=== PATIENT | female | born 1970 | race African-American/Black ===

== ENCOUNTER 2023-01-17 03:34 | Emergency (ER) | payer MEDICAID, OTHER ==
[~2023-01-17] VITALS: Ht 165.1 cm; Wt 68.0 kg
[2023-01-17 04:25] LABS: Basophils # (auto) 0.1 10 ^3/uL (0-0.2); Basophils % (auto) 1.6 % (0.0-2.0); Eosinophils # (auto) 0.1 10 ^3/uL (0-0.8); Eosinophils % (auto) 2.4 % (0.0-7.0); Hematocrit 42.1 % (36.0-46.0); Hemoglobin 13.7 g/dL (12.2-16.2); Mean Corpuscular Hemoglobin 27.2 pg (28.0-32.0); Mean Corpuscular Hgb Conc. 32.6 g/dL (32.0-36.0); Mean Corpuscular Volume 83.4 fL (80.0-100.0); Monocytes # (auto) 0.3 10 ^3/uL (0-1.3); Monocytes % (auto) 5.5 % (0.0-12.0); Neutrophils # (auto) 4.2 10 ^3/uL (1.6-8.6); Neutrophils % (auto) 73.5 % (37.0-80.0); Nucleated Red Blood Cells % 0.2 %; Red Blood Cells 5.05 10^6/uL (4.0-5.20); Red Cell Distribution Width 13.6 % (11.8-14.3); White Blood Cell 5.7 10^3/uL (4.4-10.8)
[2023-01-17 04:46] LABS: Albumin 3.9 g/dL (3.4-5.0); Calcium 8.6 mg/dL (8.5-10.1); Potassium 3.1 mmol/L (3.5-5.1)
[2023-01-17 04:49] LABS: BUN/Creatinine Ratio 22.1 (10.0-20.0); Bilirubin, Total 0.5 mg/dL (0.2-1.0); Total Protein 7.3 g/dL (6.4-8.2)
[2023-01-17] MEDS ORDERED: ZOFR4T PO (05:27)
[2023-01-17] MEDS ORDERED: CIPR-173 PO (05:27)
[2023-01-17] MEDS ORDERED: PERCOT PO (05:27)
[2023-01-17] MEDS ORDERED: OXYCODONE W/ ACETAMINOPHEN 5/325MG TABLET PO ONE (05:30)
[2023-01-17] MEDS ORDERED: CIPROFLOXACIN HCL 500 MG TAB PO ONE (05:30)
[2023-01-17] MEDS ORDERED: ONDANSETRON ODT 4 MG TAB PO ONE (05:30)
[2023-01-17 05:53] VITALS: BP 131/86
== END 2023-01-17 06:53 | disposition home or self-care (01) ==
LOC: ER 03:34
DX: N20.0 Calculus of kidney (principal); K29.70 Gastritis, unspecified, without bleeding; Z90.49 Acquired absence of other specified parts of digestive tract; Z88.2 Allergy status to sulfonamides; Z88.8 Allergy status to other drugs, medicaments and biological substances
CPT/HCPCS: 36415; 74176; 80053; 85025; 93005; 99284; Q0162

== ENCOUNTER 2023-01-17 11:53 | Emergency (ER) | payer MEDICAID ==
[~2023-01-17] VITALS: Ht 167.6 cm; Wt 68.0 kg
[~2023-01-17 11:53] MED LIST: CIPR-173 PO; PERCOT PO; ZOFR4T PO
[2023-01-17 14:01] VITALS: BP 131/93
[2023-01-17] MEDS ORDERED: OXYCODONE W/ ACETAMINOPHEN 5/325MG TABLET PO ONE (14:15)
== END 2023-01-17 14:36 | disposition home or self-care (01) ==
LOC: ER 11:53
DX: N23 Unspecified renal colic (principal); R51.9 Headache, unspecified; Z90.89 Acquired absence of other organs; Z98.51 Tubal ligation status; Z88.8 Allergy status to other drugs, medicaments and biological substances; Z88.2 Allergy status to sulfonamides